=== PATIENT | female | born 1950 | race African-American/Black ===

== ENCOUNTER 2019-08-21 07:09 | Day surgery (SDC) | payer OTHER ==
[2019-08-21] MEDS ORDERED: MIDAZOLAM 2 MG/2 ML VIAL IVP ONE (07:10)
[2019-08-21] MEDS ORDERED: fentaNYL 250 MCG/5 ML VIAL IVP ONE (07:10)
[2019-08-21] MEDS ORDERED: LACTATED RINGERS 1,000 ML IV ONE (07:14)
[2019-08-21 09:45] VITALS: BP 101/55
== END 2019-08-21 07:10 | disposition home or self-care (01) ==
LOC: SDS 07:09
PROVIDERS: ATTEND Surgery
PROC: 0DJD8ZZ Inspection of Lower Intestinal Tract, Via Natural or Artificial Opening Endoscopic (ICD-10-PCS; principal; 2019-08-21 08:30)
DX: Z12.11 Encounter for screening for malignant neoplasm of colon (principal); K64.4 Residual hemorrhoidal skin tags; Z87.19 Personal history of other diseases of the digestive system; I12.9 Hypertensive chronic kidney disease with stage 1 through stage 4 chronic kidney disease, or unspecified chronic kidney disease; N18.2 Chronic kidney disease, stage 2 (mild); Z79.899 Other long term (current) drug therapy
CPT/HCPCS: 45378; J3010; J7120

== ENCOUNTER 2022-08-19 08:00 | Outpatient (CLI) | payer OTHER ==
[2022-08-19 12:50] LABS: BASOPHILS # (AUTO) 0.1 10^3/uL (0.0-0.1); BASOPHILS % (AUTO) 0.6 %; EOSINOPHILS # (AUTO) 0.2 10^3/uL (0.0-0.7); EOSINOPHILS % (AUTO) 2.5 %; HCT - HEMATOCRIT 38.5 % (37.0-47.0); LYMPHOCYTES # (AUTO) 1.8 10^3/uL (1.5-3.5); MEAN CORPUSCULAR HEMOGLOBIN 28.3 pg (27.0-31.0); MEAN CORPUSCULAR HGB CONC 31.2 g/dL (32.0-36.0); MEAN CORPUSCULAR VOLUME 90.8 fL (81.0-99.0); MEAN PLATELET VOLUME 10.3 fL (7.9-10.8); MONOCYTES # (AUTO) 0.5 10^3/uL (0.0-1.0); NEUTROPHILS # (AUTO) 5.2 10^3/uL (1.5-6.6); NEUTROPHILS % (AUTO) 67.6 %; PLT - PLATELET COUNT 316 10^3/uL (130-450); RED BLOOD COUNT 4.24 10^6/uL (4.20-5.40); RED CELL DISTRIBUTION WIDTH 13.9 % (12.0-15.0); WHITE BLOOD COUNT 7.7 x10^3/uL (4.8-10.8)
[2022-08-19 12:55] LABS: CREATININE 0.9 mg/dL (0.4-1.0)
[2022-08-19 13:24] LABS: CALCIUM 9.8 mg/dL (8.5-10.3); POTASSIUM 3.8 mmol/L (3.5-5.0)
== END 2022-08-19 23:59 | disposition home or self-care (01) ==
LOC: LAB.N 08:00
PROVIDERS: ATTEND Physician Assistant
DX: R30.0 Dysuria (principal)
CPT/HCPCS: 36415; 80048; 85025; 87086

== ENCOUNTER 2023-09-06 09:15 | Outpatient (CLI) | payer OTHER ==
--- NOTE | 2023-09-06 17:35 | XRAY Report ---
PROCEDURE: Hips w/Pelvis 2-3V BL INDICATIONS: LEFT HIP PAIN TECHNIQUE: 3 views of the hip were acquired. COMPARISON: None. FINDINGS: Bones: No fractures or dislocations. Moderate to severe right hip joint osteoarthritis and mild to m oderate left hip joint osteoarthritis is seen. No evidence of avascular necrosis of femoral head. Deg enerative disc disease in visualized lower lumbar spine is seen. No suspicious bony lesions. Soft tissues: No suspicious soft tissue calcifications or masses. IMPRESSION: 1. No acute pelvic or hip fracture. Right worse than left bilateral hip joint osteoarthritis. No evid ence of avascular necrosis. Moderate to severe degenerative disc disease in lower lumbar spine. Reviewed by: Shamar Morgan MD on 09/06/2023 5:33 PM PST Approved by: Shamar Morgan MD on 09/06/2023 5:33 PM PST Station ID: [id number]
== END 2023-09-06 09:30 | disposition home or self-care (01) ==
LOC: DI.N 09:15
PROVIDERS: ATTEND Family Medicine
DX: M16.0 Bilateral primary osteoarthritis of hip (principal); M51.36 Other intervertebral disc degeneration, lumbar region; M79.652 Pain in left thigh
CPT/HCPCS: 36415; 85379

== ENCOUNTER 2023-09-06 09:30 | Outpatient (CLI) | payer OTHER | END 2023-09-06 09:45 | disposition home or self-care (01) | LOC: LAB.N 09:30 | PROVIDERS: ATTEND Family Medicine | DX: M79.652 Pain in left thigh (principal) | CPT/HCPCS: 36415; 85379 ==

== ENCOUNTER 2024-03-25 11:55 | Outpatient (CLI) | payer OTHER ==
[2024-03-25 12:45] LABS: BASOPHILS # (AUTO) 0.1 10^3/uL (0.0-0.1); BASOPHILS % (AUTO) 0.9 %; EOSINOPHILS # (AUTO) 0.1 10^3/uL (0.0-0.7); EOSINOPHILS % (AUTO) 1.5 %; HCT - HEMATOCRIT 38.2 % (37.0-47.0); LYMPHOCYTES # (AUTO) 2.1 10^3/uL (1.5-3.5); LYMPHOCYTES % (AUTO) 26.3 %; MEAN CORPUSCULAR HEMOGLOBIN 28.5 pg (27.0-31.0); MEAN CORPUSCULAR HGB CONC 31.4 g/dL (32.0-36.0); MEAN CORPUSCULAR VOLUME 90.7 fL (81.0-99.0); MEAN PLATELET VOLUME 9.4 fL (7.9-10.8); MONOCYTES # (AUTO) 0.4 10^3/uL (0.0-1.0); MONOCYTES % (AUTO) 5.1 %; NEUTROPHILS # (AUTO) 5.3 10^3/uL (1.5-6.6); PLT - PLATELET COUNT 295 10^3/uL (130-450); RED BLOOD COUNT 4.21 10^6/uL (4.20-5.40); RED CELL DISTRIBUTION WIDTH 13.7 % (12.0-15.0)
[2024-03-25 13:09] LABS: ALBUMIN 4.3 g/dL (3.2-5.5); ALBUMIN/GLOBULIN RATIO 1.3 (1.0-2.2); ALKALINE PHOSPHATASE 66 IU/L (42-121); ALT ALANINE AMINOTRANSFERASE 17 IU/L (10-60); AST ASPARTATE AMINOTRANSFERASE 23 IU/L (10-42); BILIRUBIN,TOTAL 0.5 mg/dL (0.2-1.0); BUN - BLOOD UREA NITROGEN 14 mg/dL (6-20); CARBON DIOXIDE - CO2 28 mmol/L (21-32); CHLORIDE 105 mmol/L (101-111); CHOL/HDL RATIO 2.3 (<4.4); CHOLESTEROL 166 mg/dL; CREATININE 0.8 mg/dL (0.6-1.3); GFR - MDRD 85 (>89); GLUCOSE 89 mg/dL (74-104); HDL CHOLESTEROL 73 mg/dL; LDL CHOLESTEROL,CALCULATED 75 mg/dL; POTASSIUM 4.1 mmol/L (3.5-4.5); SODIUM 142 mmol/L (135-145); TOTAL PROTEIN 7.6 g/dL (6.4-8.9); TRIGLYCERIDES 90 mg/dL; VLDL CHOLESTEROL 18 mg/dL
== END 2024-03-25 11:56 | disposition home or self-care (01) ==
LOC: LAB 11:55
PROVIDERS: ATTEND Nurse Practitioner
DX: I10 Essential (primary) hypertension (principal); E78.5 Hyperlipidemia, unspecified; D05.10 Intraductal carcinoma in situ of unspecified breast
CPT/HCPCS: 36415; 80053; 80061; 83721; 85025